=== PATIENT | female | born 1980 | race Caucasian/White ===

== ENCOUNTER 2016-04-12 08:38 | Emergency (ER) | payer SELFPAY ==
[~2016-04-12 08:38] MED LIST: LISI1TAB5 PO
[2016-04-12 09:28] LABS: BASO % 1 % (0-3); EOS % 1 % (0-3); HEMATOCRIT 39.3 % (36.0-47.0); HEMOGLOBIN 13.3 g/dL (12.0-15.5); LYMPH # 1.5 x10^3/uL (1.0-4.8); LYMPH % 16 % (24-48); MEAN CORPUSCULAR HEMOGLOBIN 28 pg (25-35); MEAN CORPUSCULAR HGB CONC 34 g/dL (31-37); MEAN CORPUSCULAR VOLUME 83 fL (79-100); MONO % 10 % (0-9); NEUT % 73 % (31-73); PLATELET COUNT 324 x10^3/uL (140-400); RED BLOOD COUNT 4.75 x10^6/uL (3.50-5.40); RED CELL DISTRIBUTION WIDTH 14.2 % (11.5-14.5); WHITE BLOOD COUNT 9.8 x10^3/uL (4.0-11.0)
--- NOTE | 2016-04-12 09:29 | PHYS DOC ---
Past Medical History Past Medical History: Hypertension Past Surgical History: Other Additional Past Surgical Histo: knee surgery 1999 Alcohol Use: Occasionally Drug Use: None Adult General Chief Complaint Chief Complaint: CHEST PAIN HPI HPI Patient is a 35 year old female who presents with intermittent left sided chest pain since 05 today. Describes pain as burning that last approximately 15 sec. Denies n/v, shortness of air, radiation, fever, cough. Reports she took her BP at work and it was high and she is concerned this is causing the pain. States she used to take Lisinopril for high blood pressure but she had an allergic reaction in 2013 and has been off of it since and does not have a primary doctor. Review of Systems Review of Systems Constitutional: Denies fever or chills Eyes: Denies change in visual acuity, redness, or eye pain HENT: Denies nasal congestion or sore throat Respiratory: Denies cough or shortness of breath Cardiovascular: Intermittent left sided ches tpain GI: Denies abdominal pain, nausea, vomiting, bloody stools or diarrhea : Denies dysuria or hematuria Musculoskeletal: Denies back pain or joint pain Integument: Denies rash or skin lesions Neurologic: Denies headache, focal weakness or sensory changes Endocrine: Denies polyuria or polydipsia Allergies Allergies Allergies Coded Allergies Type Severity Reaction Last Updated Verified lisinopril Allergy Severe Swelling 12/13/13 Yes Physical Exam Physical Exam Constitutional: Well developed, well nourished, no acute distress, non-toxic appearance. HENT: Normocephalic, atraumatic, bilateral external ears normal, oropharynx moist, no oral exudates, nose normal. Eyes: PERRLA, EOMI, conjunctiva normal, no discharge. Neck: Normal range of motion, no tenderness, supple, no stridor. Cardiovascular:Heart rate regular rhythm, no murmur Lungs & Thorax: Bilateral breath sounds clear to auscultation Abdomen: Bowel sounds normal, soft, no tenderness, no masses, no pulsatile masses. Skin: Warm, dry, no erythema, no rash. Back: No tenderness, no CVA tenderness. Extremities: No tenderness, no cyanosis, no clubbing, ROM intact, no edema. Neurologic: Alert and oriented X 3, normal motor function, normal sensory function, no focal deficits noted. Psychologic: Affect normal, judgement normal, mood normal. Current Patient Data Vital Signs Vital Signs Date Time Temp Pulse Resp B/P Pulse Ox O2 Delivery O2 Flow Rate FiO2 04/12/16 10:30 88 20 160/90 99 Room Air 04/12/16 08:55 98.3 98.3 Lab Values Laboratory Tests Test 04/12/16 09:05 04/12/16 09:45 04/12/16 10:03 White Blood Count 9.8x10^3/uL (4.0-11.0) Red Blood Count 4.75x10^6/uL (3.50-5.40) Hemoglobin 13.3g/dL (12.0-15.5) Hematocrit 39.3% (36.0-47.0) Mean Corpuscular Volume 83fL (79-100) Mean Corpuscular Hemoglobin 28pg (25-35) Mean Corpuscular Hemoglobin Concent 34g/dL (31-37) Red Cell Distribution Width 14.2% (11.5-14.5) Platelet Count 324x10^3/uL (140-400) Neutrophils (%) (Auto) 73% (31-73) Lymphocytes (%) (Auto) 16% (24-48) L Monocytes (%) (Auto) 10% (0-9) H Eosinophils (%) (Auto) 1% (0-3) Basophils (%) (Auto) 1% (0-3) Neutrophils # (Auto) 7.1x10^3uL (1.8-7.7) Lymphocytes # (Auto) 1.5x10^3/uL (1.0-4.8) Monocytes # (Auto) 1.0x10^3/uL (0.0-1.1) Eosinophils # (Auto) 0.1x10^3/uL (0.0-0.7) Basophils # (Auto) 0.0x10^3/uL (0.0-0.2) Prothrombin Time 14.2SEC (11.7-14.0) H Prothrombin Time INR 1.2 (0.8-1.1) H Sodium Level 142mmol/L (136-145) Potassium Level 3.5mmol/L (3.5-5.1) Chloride Level 103mmol/L (98-107) Carbon Dioxide Level 29mmol/L (21-32) Anion Gap 10 (6-14) Blood Urea Nitrogen 5mg/dL (7-20) L Creatinine 1.0mg/dL (0.6-1.0) Estimated GFR (Cockcroft-Gault) 62.7 Glucose Level 88mg/dL (70-99) Calcium Level 9.0mg/dL (8.5-10.1) Magnesium Level 1.8mg/dL (1.8-2.4) Total Bilirubin 0.3mg/dL (0.2-1.0) Direct Bilirubin < 0.1mg/dL (0.0-0.2) Aspartate Amino Transferase (AST) 22U/L (15-37) Alanine Aminotransferase (ALT) 26U/L (14-59) Alkaline Phosphatase 81U/L (46-116) Creatine Kinase 319U/L (26-192) H Creatine Kinase MB (Mass) 2.0ng/mL (0.0-3.6) Creatine Kinase MB Relative Index 0.6% (0-4) Troponin I Quantitative < 0.017ng/mL (0.000-0.055) HI-Eak-X-Type Natriuretic Peptide 57pg/mL (0-124) Total Protein 8.2g/dL (6.4-8.2) Albumin 3.8g/dL (3.4-5.0) Lipase 726U/L (73-393) H Urine Collection Type Unknown Urine Color Patricia Urine Clarity Cloudy Urine pH 6.0 Urine Specific Wal[place] 1.025 Urine Protein 100mg/dL (NEG-TRACE) Urine Glucose (UA) Negativemg/dL (NEG) Urine Ketones (Stick) Negativemg/dL (NEG) Urine Blood Large (NEG) Urine Nitrite Negative (NEG) Urine Bilirubin Negative (NEG) Urine Urobilinogen Dipstick 1.0mg/dL (0.2 mg/dL) Urine Leukocyte Esterase Negative (NEG) Urine RBC 3-5/HPF (0-2) Urine WBC 5-10/HPF (0-4) Urine Squamous Epithelial Cells Many/LPF Urine Bacteria Many/HPF (0-FEW) Urine Hyaline Casts Few/HPF Urine Mucus Marked/LPF POC Urine HCG, Qualitative Hcg negative (Negative) Laboratory Tests 04/12/16 09:05 Laboratory Tests 04/12/16 09:05 EKG EKG [] Radiology/Procedures Radiology/Procedures [] Impressions: Chest pain Course & Med Decision Making Course & Med Decision Making Pertinent Labs and Imaging studies reviewed. (See chart for details) Chest Xray, Cardiac Enzymes, EKG reviewed and unremarkable. No pain since arrival. Has been sleeping on both occasions or entering room. BP 158/87 on dismissal. Discussed follow up with patient at length regarding harms of uncontrolled blood pressure and als o given retrun precautions. Dragon Disclaimer Dragon Disclaimer This electronic medical record was generated, in whole or in part, using a voice recognition dictation system. Departure Departure Impression: Primary Impression: Chest pain Disposition: 01 HOME, SELF-CARE Condition: STABLE Referrals: NON,STAFF (PCP) Patient Instructions: Chest Pain (Nonspecific), [id number], Hypertension Additional Instructions: Follow up at [facility] regarding your blood pressure as discussed. Return with any chest pain, shortness of breath, or any problems or concerns Problem Qualifiers Primary Impression: Chest pain TAYLOR PATRICK APRN Apr 12, 2016 09:29
[2016-04-12 09:37] LABS: INR 1.2 (0.8-1.1); PROTHROMBIN TIME PATIENT 14.2 SEC (11.7-14.0)
[2016-04-12 09:42] LABS: ANION GAP 10 (6-14); BLOOD UREA NITROGEN 5 mg/dL (7-20); CARBON DIOXIDE 29 mmol/L (21-32); CHLORIDE 103 mmol/L (98-107); GFR 62.7; GLUCOSE 88 mg/dL (70-99); POTASSIUM 3.5 mmol/L (3.5-5.1); SODIUM 142 mmol/L (136-145)
[2016-04-12 09:49] LABS: ALBUMIN 3.8 g/dL (3.4-5.0); ALK PHOS 81 U/L (46-116); ALT (SGPT) 26 U/L (14-59); AST (SGOT) 22 U/L (15-37); CREATINE KINASE 313 U/L (26-192); DIRECT BILIRUBIN < 0.1 mg/dL (0.0-0.2); MAGNESIUM 1.8 mg/dL (1.8-2.4); TOTAL BILIRUBIN 0.3 mg/dL (0.2-1.0); TOTAL PROTEIN 8.2 g/dL (6.4-8.2)
--- NOTE | 2016-04-12 09:53 | EKG ---
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
[2016-04-12 09:58] LABS: CKMB INDEX 0.6 % (0-4)
[2016-04-12 10:23] LABS: BILIRUBIN,URINE NEGATIVE (NEG); GLUCOSE,URINE NEGATIVE (NEG); NITRITE,URINE NEGATIVE (NEG); PROTEIN,URINE 100 mg/dL (NEG-TRACE)
--- NOTE | 2016-04-12 10:27 | RAD ---
INDICATION: chest pain COMPARISON: 08/14/2012 FINDINGS: 2 views of chest obtained. No focal airspace consolidation. Mediastinal contour is unremarkable. No gross osseous destructive lesion. IMPRESSION: No focal airspace consolidation or edema.
[2016-04-12 10:30] VITALS: BP 160/90
[2016-04-12 10:30] LABS: BACTERIA,URINE MANY /HPF (0-FEW); SQUAMOUS EPITHELIAL CELL,UR MANY /LPF
== END 2016-04-12 13:00 | disposition home or self-care (01) ==
LOC: ER 08:38
DX: R07.9 Chest pain, unspecified (principal); I10 Essential (primary) hypertension; Z88.8 Allergy status to other drugs, medicaments and biological substances
CPT/HCPCS: 36415; 71020; 80048; 80076; 81001; 81025; 82550; 82553; 83690; 83735; 83880; 84484; 85027; 85610; 87086; 93005; 99285-25

== ENCOUNTER 2020-07-15 08:33 | Emergency (ER) | payer SELFPAY ==
[~2020-07-15] VITALS: Ht 170.2 cm; Wt 124.3 kg
[~2020-07-15 08:33] MED LIST changes: +LISI1TAB37 PO; -LISI1TAB5 PO; +METH4TAB2 PO
[2020-07-15 09:57] LABS: BASO # 0.1 x10^3/uL (0.0-0.2); BASO % 1 % (0-3); EOS # 0.3 x10^3/uL (0.0-0.7); EOS % 3 % (0-3); HEMATOCRIT 39.7 % (36.0-47.0); HEMOGLOBIN 13.2 g/dL (12.0-15.5); LYMPH # 1.8 x10^3/uL (1.0-4.8); LYMPH % 18 % (24-48); MEAN CORPUSCULAR HEMOGLOBIN 28 pg (25-35); MEAN CORPUSCULAR HGB CONC 33 g/dL (31-37); MEAN CORPUSCULAR VOLUME 85 fL (79-100); MONO # 0.6 x10^3/uL (0.0-1.1); MONO % 6 % (0-9); NEUT # 7.3 x10^3/uL (1.8-7.7); NEUT % 73 % (31-73); PLATELET COUNT 299 x10^3/uL (140-400); RED BLOOD COUNT 4.66 x10^6/uL (3.50-5.40); RED CELL DISTRIBUTION WIDTH 14.1 % (11.5-14.5); WHITE BLOOD COUNT 10.1 x10^3/uL (4.0-11.0)
[2020-07-15 09:59] LABS: BILIRUBIN,URINE NEGATIVE (NEG); CLARITY,URINE CLEAR; COLOR,URINE YELLOW; NITRITE,URINE NEGATIVE (NEG); PH,URINE 6.5 (<5.0-8.0); PROTEIN,URINE 100 mg/dL (NEG-TRACE); UROBILINOGEN,URINE 0.2 mg/dL (0.2 mg/dL)
[2020-07-15 10:00] VITALS: BP 185/118
[2020-07-15] MEDS ORDERED: IV NORMAL SALINE 1000ML BAG 1,000 ML IV ONE (10:00)
[2020-07-15] MEDS ORDERED: ONDANSETRON PF 4 MG/2 ML VIAL. IVP ONE ×2 (10:00→12:45)
[2020-07-15] MEDS ORDERED: MORPHINE SULFATE 10 MG/ML VIAL. IV ONE (10:00)
[2020-07-15 10:07] LABS: CALCIUM 8.7 mg/dL (8.5-10.1); CREATININE 0.9 mg/dL (0.6-1.0); GFR 69.3; POTASSIUM 4.2 mmol/L (3.5-5.1)
[2020-07-15 10:09] LABS: BACTERIA,URINE FEW /HPF (0-FEW); TRICHOMONAS,URINE PRESENT
[2020-07-15 10:11] LABS: RBC,URINE 0 /HPF (0-2)
[2020-07-15 10:13] LABS: ALBUMIN 3.7 g/dL (3.4-5.0); ALBUMIN/GLOBULIN RATIO 0.9 (1.0-1.7); TOTAL BILIRUBIN 0.4 mg/dL (0.2-1.0); TOTAL PROTEIN 7.7 g/dL (6.4-8.2)
[2020-07-15] MEDS ORDERED: IOHEXOL 240 MG/ML 50ML VIAL. PO ONE (10:30)
[2020-07-15] MEDS ORDERED: IOHEXOL 300 MG/ML 100ML VIAL. IV ONE (10:30)
[2020-07-15] MEDS ORDERED: CONTRAST GIVEN. MC PRN (10:45)
--- NOTE | 2020-07-15 11:29 | RAD ---
Exam Date: 07/15/2020 10:[address] ABDOMEN+PELVIS W Indication: Reason: abdominal pain, elderly / Spl. Instructions: omni 300 75ml omniu 240 50ml / His tory: TECHNIQUE: CT examination of the abdomen and pelvis was performed following the administration of or al and nonionic intravenous contrast. One or more of the following dose reduction techniques were ut ilized: *Automated exposure control (AEC) *Adjustment of mA and/or kV according to patient size *Use of iterative reconstruction technique *CT scan done according to ALARA, or ALARA/IMAGE GENTLY FINDINGS: The visualized lung bases are clear, except for a calcified granuloma on the right. There is somewhat nodular prominence of the adrenal glands bilaterally which is nonspecific. There is a subcentimeter focus in the left kidney which demonstrates fat density suggestive of an angiomyolip luisana. There is a too small to characterize hypodensity in the right kidney. The liver, gallbladder, spleen, pancreas, and kidneys are otherwise normal. Urinary bladder is normal in appearance. Diverticulosis coli is seen without bowel obstruction or inflammation. The appendix is normal. Minimal atherosclerotic calcifications are seen. No lymphadenopathy or ascites is seen. Degenerative changes are seen in the spine. IMPRESSION: No evidence of acute intra-abdominal pathology. Nodular prominence of the adrenal glands bilaterally is nonspecific. This could represent hyperplasia , adrenal adenomas, or other adrenal lesions. Comparison to prior exams to document stability would B E helpful. Consider further evaluation with MRI or CT using adrenal protocol. Electronically signed by: Rafa Latham MD (07/15/2020 11:26 AM) [facility]
[2020-07-15] MEDS ORDERED: DOXY100C2 PO (12:12)
--- NOTE | 2020-07-15 12:16 | ED.ADGEN ---
Past Medical History Past Medical History: Hypertension Past Surgical History: Other Additional Past Surgical Histo: knee surgery 1999 Smoking Status: Current Every Day Smoker Alcohol Use: Occasionally Drug Use: Marijuana General Adult EDM: Chief Complaint: ABDOMINAL PAIN HPI: HPI: Patient is a previously healthy 39-year-old female who presents to the emergency room complaining of abdominal pain and nausea. Patient did have a single episode of vomiting this morning but not since had any vomiting. She denies any vaginal discharge or bleeding. She denies any urinary symptoms. She denies any hematuria. She denies any diarrhea or constipation. She states that the pain is in her right pelvis and right lower quadrant, left flank. She states it is intermittent in nature but has been worse over the last couple of days. She states that the left-sided pain feels sharp. She states the right-sided pain feels like a dull pain that she just there. Nothing seems to make the pain better or worse. She has not tried anything for it at home. Review of Systems: Review of Systems: Complete ROS is negative unless otherwise documented in HPI Current Medications: Current Medications Medications (Trade) Dose Ordered Sig/Emerson Start Time Stop Time Status Last Admin Dose Admin Ceftriaxone Sodium (Rocephin) 1 gm 1X ONCE 07/15/20 12:15 07/15/20 12:16 UNV Info (CONTRAST GIVEN -- Rx MONITORING) 1 each PRN DAILY PRN 07/15/20 10:45 07/17/20 10:44 Iohexol (Omnipaque 240 Mg/ml) 50 ml 1X ONCE 07/15/20 10:30 07/15/20 10:32 DC 07/15/20 10:30 50 ML Iohexol (Omnipaque 300 Mg/ml) 75 ml 1X ONCE 07/15/20 10:30 07/15/20 10:32 DC 07/15/20 11:00 75 ML Metronidazole (Flagyl) 2,000 mg 1X ONCE 07/15/20 12:15 07/15/20 12:16 UNV Morphine Sulfate (Morphine Sulfate) 5 mg 1X ONCE 07/15/20 10:00 07/15/20 10:01 DC Ondansetron HCl (Zofran) 4 mg 1X ONCE 07/15/20 12:15 07/15/20 12:16 UNV Sodium Chloride 1,000 ml @ 0 mls/hr Q0M ONCE 07/15/20 10:00 07/15/20 10:01 DC 07/15/20 10:16 1,000 MLS/HR Allergies: Allergies: Allergies Coded Allergies Type Severity Reaction Last Updated Verified lisinopril Allergy Severe Swelling 12/13/13 Yes Physical Exam: PE: General: Awake, alert, NAD. Well Nourished, well hydrated. Cooperative HEENT: Atraumatic, EOMI, PERRL, airway patent, moist oral mucosa Neck: Supple, trachea midline Respiratory: CTA bilaterally, normal effort, no wheezing/crackles CV: RRR, no murmur, cap refill <2 GI: Soft, nondistended, bilateral tenderness, no rebound, no guarding, no masses MSK: No obvious deformities Skin: Warm, dry, intact Neuro: A&O x3, speech NL, sensory and motor grossly intact, no focal deficits Psych: Normal affect, normal mood, not suicidal or homicidal Current Patient Data: Labs: Laboratory Tests Test 07/15/20 08:45 07/15/20 08:56 07/15/20 09:07 Urine Collection Type Unknown Urine Color Yellow Urine Clarity Clear Urine pH 6.5 (<5.0-8.0) Urine Specific [place] 1.015 (1.000-1.030) Urine Protein 100 mg/dL (NEG-TRACE) Urine Glucose (UA) Negative mg/dL (NEG) Urine Ketones (Stick) Negative mg/dL (NEG) Urine Blood Negative (NEG) Urine Nitrite Negative (NEG) Urine Bilirubin Negative (NEG) Urine Urobilinogen Dipstick 0.2 mg/dL (0.2 mg/dL) Urine Leukocyte Esterase Negative (NEG) Urine RBC 0 /HPF (0-2) Urine WBC 1-4 /HPF (0-4) Urine Squamous Epithelial Cells Mod /LPF Urine Bacteria Few /HPF (0-FEW) Urine Mucus Mod /LPF Urine Trichomonas Present POC Urine HCG, Qualitative Hcg negative (Negative) White Blood Count 10.1 x10^3/uL (4.0-11.0) Red Blood Count 4.66 x10^6/uL (3.50-5.40) Hemoglobin 13.2 g/dL (12.0-15.5) Hematocrit 39.7 % (36.0-47.0) Mean Corpuscular Volume 85 fL (79-100) Mean Corpuscular Hemoglobin 28 pg (25-35) Mean Corpuscular Hemoglobin Concent 33 g/dL (31-37) Red Cell Distribution Width 14.1 % (11.5-14.5) Platelet Count 299 x10^3/uL (140-400) Neutrophils (%) (Auto) 73 % (31-73) Lymphocytes (%) (Auto) 18 % (24-48) L Monocytes (%) (Auto) 6 % (0-9) Eosinophils (%) (Auto) 3 % (0-3) Basophils (%) (Auto) 1 % (0-3) Neutrophils # (Auto) 7.3 x10^3/uL (1.8-7.7) Lymphocytes # (Auto) 1.8 x10^3/uL (1.0-4.8) Monocytes # (Auto) 0.6 x10^3/uL (0.0-1.1) Eosinophils # (Auto) 0.3 x10^3/uL (0.0-0.7) Basophils # (Auto) 0.1 x10^3/uL (0.0-0.2) Sodium Level 141 mmol/L (136-145) Potassium Level 4.2 mmol/L (3.5-5.1) Chloride Level 104 mmol/L (98-107) Carbon Dioxide Level 27 mmol/L (21-32) Anion Gap 10 (6-14) Blood Urea Nitrogen 8 mg/dL (7-20) Creatinine 0.9 mg/dL (0.6-1.0) Estimated GFR (Cockcroft-Gault) 69.3 BUN/Creatinine Ratio 9 (6-20) Glucose Level 89 mg/dL (70-99) Calcium Level 8.7 mg/dL (8.5-10.1) Total Bilirubin 0.4 mg/dL (0.2-1.0) Aspartate Amino Transferase (AST) 23 U/L (15-37) Alanine Aminotransferase (ALT) 31 U/L (14-59) Alkaline Phosphatase 84 U/L (46-116) Total Protein 7.7 g/dL (6.4-8.2) Albumin 3.7 g/dL (3.4-5.0) Albumin/Globulin Ratio 0.9 (1.0-1.7) L Lipase 180 U/L (73-393) Laboratory Tests 5/20/21 09:07 Laboratory Tests 07/15/20 09:07 Vital Signs: Vital Signs Date Time Temp Pulse Resp B/P (MAP) Pulse Ox O2 Delivery O2 Flow Rate FiO2 07/15/20 10:00 90 185/118 (140) 98 Room Air 07/15/20 09:03 97.4 20 97.4 EKG: EKG: [] Heart Score: C/O Chest Pain: N/A Risk Factors: Risk Factors: DM, Current or recent (<one month) smoker, HTN, HLP, family history of CAD, obesity. Risk Scores: Score 0 - 3: 2.5% MACE over next 6 weeks - Discharge Home Score 4 - 6: 20.3% MACE over next 6 weeks - Admit for Clinical Observation Score 7 - 10: 72.7% MACE over next 6 weeks - Early Invasive Strategies Radiology/Procedures: Radiology/Procedures: [] Course & Med Decision Making: Course & Med Decision Making Pertinent Labs and Imaging studies reviewed. (See chart for details) Patient is a 39-year-old female who presents to the emergency room complaining of diffuse intermittent abdominal pain. Overall abdomen is benign though she does have tenderness on exam. CT abdomen pelvis and abdominal lab work was ordered. UA does have some white blood cells, however it also shows signs of trichomonas. Gonorrhea chlamydia testing was added. Patient is afebrile with normal blood counts. At this time there is not concern for TOA. I have discussed with the patient signs and symptoms of TOA. She will be treated for trichomonas as well as gonorrhea and chlamydia. Patient's test results and vitals while in the ED were fully reviewed and discussed with the patient. Patient is stable and at this time does not need admission to the hospital. We have discussed strict return precautions and the importance of following up with their Primary Care Physician. Patient stated understanding and was given an opportunity to ask any questions. Patient is in agreement with plan. Wojciech Disclaimer: Wojciech Disclaimer: This electronic medical record was generated, in whole or in part, using a voice recognition dictation system. Departure Departure Impression: Primary Impression: Trichimoniasis Additional Impression: UTI (urinary tract infection) Disposition: HOME / SELF CARE / HOMELESS Condition: STABLE Referrals: NO PCP (PCP) Patient Instructions: Trichomoniasis Scripts Doxycycline Hyclate (DOXYCYCLINE HYCLATE) 100 Mg Capsule 1 CAP PO BID for 14 Days, #28 CAP Prov: MARILYN CORNELIUS MD 07/15/20 Problem Qualifiers MARILYN CORNELIUS MD July 15, 2020 12:16
[2020-07-15] MEDS ORDERED: cefTRIAXone IV Push 1 GM VIAL. IVP ONE (12:45)
[2020-07-15] MEDS ORDERED: metroNIDAZOLE 500 MG TABLET PO ONE (12:45)
== END 2020-07-15 13:46 | disposition home or self-care (01) ==
LOC: ER 08:33
DX: N39.0 Urinary tract infection, site not specified (principal); A59.9 Trichomoniasis, unspecified; I10 Essential (primary) hypertension; F17.200 Nicotine dependence, unspecified, uncomplicated; Z88.8 Allergy status to other drugs, medicaments and biological substances
CPT/HCPCS: 36415; 74177; 80053; 81001; 81025; 83690; 85025; 87491; 87591; 96374; 96375; 96376; 99285; J0696; J2405; J7030; Q9966; Q9967

== ENCOUNTER 2021-04-10 18:29 | Emergency (ER) | payer SELFPAY ==
[~2021-04-10] VITALS: Ht 167.6 cm; Wt 126.0 kg
[~2021-04-10 18:29] MED LIST changes: +DOXY100C3 PO
--- NOTE | 2021-04-10 18:42 | PHYS DOC ---
Past Medical History Past Medical History: Hypertension Past Surgical History: Other Additional Past Surgical Histo: knee surgery 1999 Smoking Status: Current Every Day Smoker Alcohol Use: Occasionally Drug Use: Marijuana General Adult HPI: HPI: Patient is a 40 year old female with a history of hypertension who presents the ED today complaining of left-sided chest pressure, patient states symptoms began 1-1/2 hours ago prior to coming to the ED. Denies any chest pain. Denies anything exacerbating or relieving her pain. She states her left hand feels funny. She states she is a smoker Review of Systems: Review of Systems: Constitutional: Denies fever or chills. [] Eyes: Denies change in visual acuity. [] HENT: Denies nasal congestion or sore throat. [] Respiratory: Denies cough or shortness of breath. [] Cardiovascular: Reports left-sided chest pressure GI: Denies abdominal pain, nausea, vomiting, bloody stools or diarrhea. [] : Denies dysuria. [] Musculoskeletal: Denies back pain or joint pain. [] Integument: Denies rash. [] Neurologic: Reports left upper extremity feeling funny denies headache, focal weakness or sensory changes. [] Psychiatric: Denies depression or anxiety. [] Heart Score: C/O Chest Pain: N/A Risk Factors: Risk Factors: DM, Current or recent (<one month) smoker, HTN, HLP, family history of CAD, obesity. Risk Scores: Score 0 - 3: 2.5% MACE over next 6 weeks - Discharge Home Score 4 - 6: 20.3% MACE over next 6 weeks - Admit for Clinical Observation Score 7 - 10: 72.7% MACE over next 6 weeks - Early Invasive Strategies Allergies: Allergies: Allergies Coded Allergies Type Severity Reaction Last Updated Verified lisinopril Allergy Severe Swelling 12/13/13 Yes Physical Exam: PE: Constitutional: Well developed, well nourished, no acute distress, non-toxic appearance. [] HENT: Normocephalic, atraumatic, bilateral external ears normal, oropharynx moist, no oral exudates, nose normal. [] Eyes: PERRLA, EOMI, conjunctiva normal, no discharge. [] Neck: Normal range of motion, no tenderness, supple, no stridor. [] Cardiovascular:Heart rate regular rhythm, no murmur [] Lungs & Thorax: Bilateral breath sounds clear to auscultation [] Abdomen: Bowel sounds normal, soft, no tenderness, no masses, no pulsatile masses. [] Skin: Warm, dry, no erythema, no rash. [] Back: No tenderness, no CVA tenderness. [] Extremities: No tenderness, no cyanosis, no clubbing, ROM intact, no edema. [] Neurologic: Alert and oriented X 3, normal motor function, normal sensory function, no focal deficits noted. [] Psychologic: Affect normal, judgement normal, mood normal. [] EKG: EK Interpreted by Dr. Brink sinus tachycardia heart rate 101 no STEMI [] Radiology/Procedures: Radiology/Procedures: PROCEDURE: CT HEAD WO CONTRAST Exam: CT head INDICATION: Chest pain TECHNIQUE: Sequential axial images through the head were obtained without the administration of IV contrast. Exposure: One or more of the following in the visualized dose reduction raisa hniques were utilized for this examination: 1. Automated exposure control 2. Adjustment of the MA and/or KV according to patient size 3. Use of iterative of reconstructive technique Comparisons: None FINDINGS: No focal parenchymal lesion or hemorrhage is identified. There is no midline shift or sulcal effacement. No acute vascular territory infarction is identified. Skinner-white distinction is preserved. The ventricular system is within normal limits without compression hydrocephalus. The basal cisterns are well maintained. Caval septum pellucidum is noted. The visualized portions of the paranasal sinuses and mastoid air cells are well- pneumatized. No acute fractures. IMPRESSION: No acute intracranial abnormality. Electronically signed by: Loreto Edmond MD (04/10/2021 7:43 PM) [facility] DICTATED and SIGNED BY: LORETO EDMOND MD DATE: 04/10/21 [id number] 0 []PROCEDURE: PORTABLE CHEST 1V XR CHEST 1V Clinical History: Reason: chest pain / Spl. Instructions: / History: Technique: AP view of the chest was obtained at 04/10/2021 6:46 PM. Comparison: April 12, 2016. Findings: The heart is moderately large. The pulmonary vessels appears somewhat full and congested. There is a few peripheral linear and reticular opacities. Impression: 1. Cardiomegaly versus pericardial effusion. 2. Mild pulmonary edema or atypical pneumonia. Electronically signed by: Ike Duran III, MD (04/10/2021 7:02 PM) [facility] DICTATED and SIGNED BY: IKE DURAN III, MD DATE: 04/10/[id number] 0 PROCEDURE: CT CHEST W/CONTRAST Exam: CT of chest with contrast INDICATION: Chest pain TECHNIQUE: Sequential axial images through the chest obtained following the administration of 60 mL of Isovue-370 IV contrast. Sagittal and coronal reformatted images were reconstructed from the axial data and reviewed. 3-D reformatted images were reconstructed from the axial data and reviewed. Exposure: One or more of the following in the visualized dose reduction techniques were utilized for this examination: 1. Automated exposure control 2. Adjustment of the MA and/or KV according to patient size 3. Use of iterative of reconstructive technique Comparisons: None FINDINGS: Visualized portions of the thyroid are unremarkable. No enlarged mediastinal lymph nodes. Right size is normal. No pericardial effusion. Thoracic aorta has normal course and caliber. Pulmonary artery is not enlarged. Airways are patent. No consolidation or pneumothorax. No suspicious lung nodules. No pleural effusion or thickening. Left adrenal thickening measuring 1.3 cm in thickness, incompletely evaluated on this study. This is stable when compared to study from June 2020 There is an expansile lytic lesion within the anterior left fifth rib measuring 4.7 x 2.5 cm. No acute fractures. IMPRESSION: 1. Expansile lytic lesion within the anterior left fifth rib measuring 4.7 x 2.5 cm. This is nonspecific and most commonly is related to fibrodysplasia. Correlate for history of malignancy. 2. Mild left adrenal thickening incompletely characterized on this study. Electronically signed by: Loreto Edmond MD (04/10/2021 8:33 PM) [facility] DICTATED and SIGNED BY: LORETO EDMOND MD DATE: 04/10/[id number] 0 Course & Med Decision Making: Course & Med Decision Making Pertinent Labs and Imaging studies reviewed. (See chart for details) This is a 40-year-old female patient presented to the ED today complaining of left-sided chest pressure, symptoms began 1-1/2 hours ago prior to coming to the ED. Also states her left hand feels funny CT of the head is negative for any acute findings. EKG is negative, 2 high-sensitivity troponins were done 3 hours apart, first troponin was 36, next troponin 33. D-dimer is normal. CBC, CMP, UA-negative for any acute findings, UDS positive for marijuana use and cocaine, patient states she knows she uses marijuana but is not concerned however is selling her marijuana could have laced it with cocaine. Chest x-ray interpreted by radiologist was noted for cardiomegaly versus pericardial effusion. Mild pulmonary edema or atypical pneumonia. CT chest with IV contrast noted for expansile lytic lesion within the anterior left fifth rib measuring 4.7 x 2.5 cm. This is nonspecific and most commonly is related to fibrodysplasia. Correlate for history of malignancy. Mild left adrenal thickening incompletely characterized on this study. Above findings discussed with patient. She has a 17-year-old daughter currently in the waiting room and is not able to be admitted to the hospital because she has to care for this daughter. She is requesting outpatient work-up through the PCP, [facility] for the above findings. Her blood pressure was also 219/153 with a heart rate in the low 100s, reports history of hypertension, she states she ran out of her HCTZ 2 to 3 weeks ago and has not been able to get a refill because new PCP requires her to be seen in the clinic before they can refill the medication. She was given todays dose of HCTZ in the ED, BP is coming down to high 190s over low 120s, she has no chest pain, no headache. She will follow-up with her PCP as soon as possible for blood pressure management and further work-up. Smoking cessation also encouraged Wojciech Disclaimer: Wojciech Disclaimer: This electronic medical record was generated, in whole or in part, using a voice recognition dictation system. Departure Departure Impression: Primary Impression: Rib lesion Additional Impressions: Accelerated hypertension Smoking addiction Marijuana abuse Disposition: HOME / SELF CARE / HOMELESS Condition: STABLE Referrals: NO PCP (PCP) Follow-up with your primary care doctor as soon as you can ERIC ESPINAL MD Follow-up as soon as possible for enlarged heart KEYLA ARREDONDO MD Follow-up for the lesion in your ribs Patient Instructions: Hypertension, Smoking Cessation, Tips For Success Additional Instructions: You were evaluated in the emergency room, your cardiac work-up was noted for cardiomegaly which is enlarged heart. You also have a lesion on your left please take your CT results to the primary care doctor for further work up. You were also noted to have an enlarged heart, please follow-up with the manager [facility] for further work-up on this. We also provided you a pulmonary doctor for follow-up concerning lesion in your left ribs. Scripts Hydrochlorothiazide (HYDROCHLOROTHIAZIDE TABLET ) 25 Mg Tablet 25 MG PO DAILY for DIURETIC, #30 TAB 0 Refills Prov: ANDREAS OROZCO APRN 04/10/21 ANDREAS OROZCO APRN Apr 10, 2021 18:42
[2021-04-10] MEDS ORDERED: ASPIRIN 325 MG TABLET PO ONE (18:45)
--- NOTE | 2021-04-10 19:04 | RAD ---
XR CHEST 1V Clinical History: Reason: chest pain / Spl. Instructions: / History: Technique: AP view of the chest was obtained at 04/10/2021 6:46 PM. Comparison: April 12, 2016. Findings: The heart is moderately large. The pulmonary vessels appears somewhat full and congested. There is a few peripheral linear and reticular opacities. Impression: 1. Cardiomegaly versus pericardial effusion. 2. Mild pulmonary edema or atypical pneumonia. Electronically signed by: Boni Alexis III, MD (04/10/2021 7:02 PM) [facility]
[2021-04-10 19:08] LABS: BASO # 0.1 x10^3/uL (0.0-0.2); BASO % 1 % (0-3); EOS # 0.3 x10^3/uL (0.0-0.7); EOS % 4 % (0-3); HEMOGLOBIN 13.8 g/dL (12.0-15.5); LYMPH # 1.9 x10^3/uL (1.0-4.8); LYMPH % 22 % (24-48); MEAN CORPUSCULAR HEMOGLOBIN 28 pg (25-35); MEAN CORPUSCULAR HGB CONC 32 g/dL (31-37); MEAN CORPUSCULAR VOLUME 86 fL (79-100); MONO # 0.6 x10^3/uL (0.0-1.1); MONO % 7 % (0-9); NEUT # 5.7 x10^3/uL (1.8-7.7); NEUT % 66 % (31-73); PLATELET COUNT 361 x10^3/uL (140-400); RED BLOOD COUNT 4.98 x10^6/uL (3.50-5.40); RED CELL DISTRIBUTION WIDTH 14.7 % (11.5-14.5); WHITE BLOOD COUNT 8.6 x10^3/uL (4.0-11.0)
[2021-04-10 19:16] LABS: CALCIUM 8.5 mg/dL (8.5-10.1); CREATININE 1.1 mg/dL (0.6-1.0); GFR 54.7; POTASSIUM 4.6 mmol/L (3.5-5.1)
[2021-04-10 19:21] LABS: ALBUMIN 3.5 g/dL (3.4-5.0); ALBUMIN/GLOBULIN RATIO 0.8 (1.0-1.7); MAGNESIUM 1.9 mg/dL (1.8-2.4); TOTAL BILIRUBIN 0.3 mg/dL (0.2-1.0); TOTAL PROTEIN 7.8 g/dL (6.4-8.2)
[2021-04-10 19:32] LABS: BILIRUBIN,URINE NEGATIVE (NEG); CLARITY,URINE CLEAR; COLOR,URINE YELLOW; NITRITE,URINE NEGATIVE (NEG); PH,URINE 6.5 (<5.0-8.0); PROTEIN,URINE >=300 mg/dL (NEG-TRACE); UROBILINOGEN,URINE 0.2 mg/dL (0.2 mg/dL)
[2021-04-10 19:35] LABS: BARBITURATES NEG (NEG); BENZODIAZEPINES NEG (NEG); CANNABINOIDS POS (NEG); COCAINE POS (NEG); METHADONE NEG (NEG); OPIATES NEG (NEG); PHENCYCLIDINE NEG (NEG)
[2021-04-10 19:36] LABS: AMPHETAMINE/METHAMPHETAMINE NEG (NEG)
[2021-04-10 19:45] LABS: BACTERIA,URINE FEW /HPF (0-FEW); HYALINE CASTS, URINE FEW /HPF
[2021-04-10] MEDS ORDERED: hydroCHLOROthiazide 25 MG TABLET PO ONE (19:45)
--- NOTE | 2021-04-10 19:46 | RAD ---
Exam: CT head INDICATION: Chest pain TECHNIQUE: Sequential axial images through the head were obtained without the administration of IV co ntrast. Exposure: One or more of the following in the visualized dose reduction techniques were utilized for this examination: 1. Automated exposure control 2. Adjustment of the MA and/or KV according to patient size 3. Use of iterative of reconstructive technique Comparisons: None FINDINGS: No focal parenchymal lesion or hemorrhage is identified. There is no midline shift or sulcal effaceme nt. No acute vascular territory infarction is identified. Skinner-white distinction is preserved. The ventricular system is within normal limits without compression hydrocephalus. The basal cisterns are well maintained. Caval septum pellucidum is noted. The visualized portions of the paranasal sinuses and mastoid air cells are well-pneumatized. No acute fractures. IMPRESSION: No acute intracranial abnormality. Electronically signed by: Loreto Riley MD (04/10/2021 7:43 PM) [facility]
[2021-04-10] MEDS ORDERED: IOHEXOL 300 MG/ML 100ML VIAL. IV ONE (20:15)
--- NOTE | 2021-04-10 20:35 | RAD ---
Exam: CT of chest with contrast INDICATION: Chest pain TECHNIQUE: Sequential axial images through the chest obtained following the administration of 60 mL o f Isovue-370 IV contrast. Sagittal and coronal reformatted images were reconstructed from the axial d sima and reviewed. 3-D reformatted images were reconstructed from the axial data and reviewed. Exposure: One or more of the following in the visualized dose reduction techniques were utilized for this examination: 1. Automated exposure control 2. Adjustment of the MA and/or KV according to patient size 3. Use of iterative of reconstructive technique Comparisons: None FINDINGS: Visualized portions of the thyroid are unremarkable. No enlarged mediastinal lymph nodes. Right size is normal. No pericardial effusion. Thoracic aorta has normal course and caliber. Pulmonar y artery is not enlarged. Airways are patent. No consolidation or pneumothorax. No suspicious lung nodules. No pleural effusion or thickening. Left adrenal thickening measuring 1.3 cm in thickness, incompletely evaluated on this study. This is stable when compared to study from June 2020 There is an expansile lytic lesion within the anterior left fifth rib measuring 4.7 x 2.5 cm. No acut e fractures. IMPRESSION: 1. Expansile lytic lesion within the anterior left fifth rib measuring 4.7 x 2.5 cm. This is nonspec ific and most commonly is related to fibrodysplasia. Correlate for history of malignancy. 2. Mild left adrenal thickening incompletely characterized on this study. Electronically signed by: Loreto Riley MD (04/10/2021 8:33 PM) [facility]
[2021-04-10 21:56] VITALS: BP 217/133
[2021-04-10] MEDS ORDERED: HYDR-2145 PO (22:30)
--- NOTE | 2021-04-10 23:23 | EKG ---
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
== END 2021-04-10 22:35 | disposition home or self-care (01) ==
LOC: ER 18:29
DX: L98.8 Other specified disorders of the skin and subcutaneous tissue (principal); I10 Essential (primary) hypertension; F17.200 Nicotine dependence, unspecified, uncomplicated; F12.10 Cannabis abuse, uncomplicated; R07.89 Other chest pain; Z88.6 Allergy status to analgesic agent
CPT/HCPCS: 36415; 70450; 71045; 71260; 80053; 80307; 81001; 81025; 83735; 83880; 84443; 84484; 85025; 85379; 93005; 99285; Q9967

== ENCOUNTER 2021-06-07 08:17 | Outpatient (CLI) | payer SELFPAY ==
[2021-06-07] VITALS (13 sets, daily range): BP systolic 144–201; BP diastolic 63–133
[~2021-06-07] VITALS: Ht 165.1 cm; Wt 127.0 kg
[~2021-06-07 08:17] MED LIST changes: +HYDR-2145 PO
[2021-06-07 08:59] LABS: BASO # 0.1 x10^3/uL (0.0-0.2); BASO % 1 % (0-3); EOS # 0.3 x10^3/uL (0.0-0.7); EOS % 3 % (0-3); HEMATOCRIT 42.9 % (36.0-47.0); LYMPH % 20 % (24-48); MEAN CORPUSCULAR HEMOGLOBIN 28 pg (25-35); MEAN CORPUSCULAR HGB CONC 33 g/dL (31-37); MEAN CORPUSCULAR VOLUME 86 fL (79-100); MONO # 0.7 x10^3/uL (0.0-1.1); MONO % 7 % (0-9); NEUT % 69 % (31-73); PLATELET COUNT 317 x10^3/uL (140-400); RED BLOOD COUNT 4.98 x10^6/uL (3.50-5.40); RED CELL DISTRIBUTION WIDTH 13.9 % (11.5-14.5); WHITE BLOOD COUNT 10.2 x10^3/uL (4.0-11.0)
[2021-06-07] MEDS ORDERED: LIDOCAINE WITH 8.4% SOD BICARB 3 ML DISP.SYRIN. ONE (09:04)
[2021-06-07 09:09] LABS: PROTHROMBIN TIME PATIENT 13.7 SEC (11.7-14.0)
[2021-06-07] MEDS ORDERED: NALOXONE 0.4 MG/ML VIAL. ONE (09:38)
[2021-06-07] MEDS ORDERED: fentaNYL PF VIAL 100 MCG/2 ML VIAL ONE (09:38)
[2021-06-07] MEDS ORDERED: MIDAZOLAM HCL/PF 2 MG/2 ML VIAL. ONE ×2 (09:38→10:09)
[2021-06-07] MEDS ORDERED: MIDAZOLAM HCL/PF 2 MG/2 ML VIAL. IV ONE (10:15)
[2021-06-07] MEDS ORDERED: LIDOCAINE WITH 8.4% SOD BICARB 3 ML DISP.SYRIN. IJ ONE (10:15)
[2021-06-07] MEDS ORDERED: fentaNYL PF VIAL 100 MCG/2 ML VIAL IV ONE (10:15)
--- NOTE | 2021-06-07 10:45 | NUR ---
notified Dr. Linder of pt's elevated b/p. pt only takes HCTZ for b/p and states that she has had high b/p since she was a kid and that is usually runs in the 200's. Dr. Linder wants pt to follow up with primary physician . notified pt of this. she sees dr. ring at the [facility]
--- NOTE | 2021-06-07 11:15 | NUR ---
pt A& O x4. denies and pain, dizziness or SOA. dressing on left medial breast is clean and dry. pt tolerating po well. ambulated to BR w/o problem. d/c instructions given. questions answered. out to vehicle per w/c, family to drive her home
--- NOTE | 2021-06-08 12:23 | RAD ---
CT-guided biopsy, expansile lesion, left fifth rib INDICATION: Expansile lesion, left fifth rib Consent: The procedure was explained in its entirety to the patient or the patients designated repres entative by a member of the treatment team, including a discussion of the risks, benefits and commonl y accepted alternatives to the procedure, as well as the expected consequences of no therapy whatsoev er. Discussion of the risks included, but was not limited to, those that are most frequent and thos e that are rare but possibly severe or life-threatening, as well as the possibility of unforeseen com plications. Discussion: The patient was placed in supine position. CT imaging of the chest was performed demonstr ating an expansile lesion of the left fifth rib. Features are most likely benign. 1% lidocaine was ad ministered for local anesthesia. Under intermittent CT guidance an uncontrolled needle was advanced i nto the periphery of the expansile lesion. A core biopsy sample was obtained. Only scant material is observed was sent for further evaluation. Needle was removed. Manual pressure was held. No immediate complications were identified. Sedation: The procedure was performed under conscious sedation including continuous cardiopulmonary m onitoring via a dedicated sedation nurse. [id number] sedation time: 34 minutes IMPRESSION: CT-guided biopsy, expansile lesion left fifth rib CT DOSING PQRS STATEMENT: One or more of the following individualized dose reduction techniques were utilized for this examinat ion: 1. Automated exposure control 2. Adjustment of the mA and/or kV according to patient size 3. Use of iterative reconstruction technique Electronically signed by: Regis Linder MD (06/08/2021 12:20 PM) [id number]
== END 2021-06-07 11:20 | disposition home or self-care (01) ==
LOC: INTRAD 08:17
PROVIDERS: ATTEND Internal Medicine Critical Care Medicine
DX: R91.8 Other nonspecific abnormal finding of lung field (principal); I10 Essential (primary) hypertension; F17.210 Nicotine dependence, cigarettes, uncomplicated; Z87.440 Personal history of urinary (tract) infections; Z79.899 Other long term (current) drug therapy; Z98.890 Other specified postprocedural states; Z72.89 Other problems related to lifestyle; Z88.8 Allergy status to other drugs, medicaments and biological substances; Z82.49 Family history of ischemic heart disease and other diseases of the circulatory system
CPT/HCPCS: 20220; 36415; 77012; 85025; 85610; 99152; 99153; J2250; J3010; J3490; 88307; 88311